=== PATIENT | male | born 1945 | race Caucasian/White ===

== ENCOUNTER → 2020-06-09 09:59 | Outpatient (CLI) | payer BC, SELFPAY ==
--- NOTE | ~2020-06-09 | US_ITS ---
EXAMINATION: US carotid duplex BI DATE: 06/09/2020 10:33 INDICATION: Other specified symptoms and signs involving the circulatory and respiratory systems. TECHNIQUE: Grayscale, color Doppler, and pulsed Doppler images of the cervical carotid arteries were obtained. The degree of vessel stenosis is placed in one of the following categories: normal, <50%, 5 0-69%, >=70% but less than near-occlusion, near-occlusion, or total occlusion. Note that percent sten osis relative to normal distal artery lumen diameter is indirectly measured from velocity measurement s as described by Jose Angel, et al. Radiology 2003; 229:340-346. COMPARISON: None. FINDINGS: RIGHT: The right common carotid artery (CCA) peak systolic velocity (PSV) is 95 cm/s. The right internal car otid artery (ICA) PSV is 68 cm/s. The right ICA end-diastolic velocity (EDV) is 7 cm/s. The right ICA /CCA PSV ratio is 0.7. Grayscale and color Doppler images yield an estimate of <50% diameter reductio n from plaque in the ICA. There is antegrade flow in the right vertebral artery. LEFT: The left CCA PSV is 138 cm/s. The left ICA PSV is 72 cm/s. The left ICA EDV is 6 cm/s. The left ICA/C CA PSV ratio is 0.5. Grayscale and color Doppler images yield an estimate of <50% diameter reduction from plaque in the ICA. There is antegrade flow in the left vertebral artery. IMPRESSION: 1. <50% stenosis in the right internal carotid artery. 2. <50% stenosis in the left internal carotid artery. Reviewed, dictated and finalized at location A. TECH
== END ==
PROVIDERS: PCP Internal Medicine; Visit Provider Internal Medicine
DX: R09.89 Other specified symptoms and signs involving the circulatory and respiratory systems (principal); I65.23 Occlusion and stenosis of bilateral carotid arteries
CPT/HCPCS: 93880

== ENCOUNTER 2022-01-03 10:49 | Outpatient (CLI) | payer BC, SELFPAY ==
--- NOTE | ~2022-01-03 | US_ITS ---
EXAMINATION: US carotid duplex BI DATE: 01/03/2022 11:43 INDICATION: Carotid stenosis. TECHNIQUE: Grayscale, color Doppler, and pulsed Doppler images of the cervical carotid arteries were obtained. The degree of vessel stenosis is placed in one of the following categories: normal, <50%, 5 0-69%, >=70% but less than near-occlusion, near-occlusion, or total occlusion. Note that percent sten osis relative to normal distal artery lumen diameter is indirectly measured from velocity measurement s as described by Jose Angel, et al. Radiology 2003; 229:340-346. Notes: Normal: Peak systolic velocity <125 centimeters/sec and no plaque <50%. Peak systolic velocity <125 ( EDV <40; ICA/CCA PSV ratio <2.0; used these factors only a tandem lesions or low cardiac output or co ntralateral disease) 50-69 %: PSV 125-230 (EDV 40-100; ratio 2-4) >= 70% but less than near occlusion: PSV greater than 230 (EDV > 100; ratio> 4.0) Near Occlusion: PSV that is variable; markedly narrowed lumen Occlusion: Absent flow on color/spectral Doppler and no lumen on walton scale. COMPARISON: Ultrasound dated 06/09/2020. FINDINGS: RIGHT: The right common carotid artery (CCA) peak systolic velocity (PSV) is 97 cm/s. The right internal car otid artery (ICA) PSV is 98 cm/s. The right ICA end-diastolic velocity (EDV) is 5.9 cm/s. The right I CA/CCA PSV ratio is 1.0. The external carotid artery (ECA) PSV is 135 cm/s. The right vertebral arter y is not visualized, possibly occluded. LEFT: The left CCA PSV is 105 cm/s. The left ICA PSV is 102 cm/s. The left ICA EDV is 12 cm/s. The left ICA /CCA PSV ratio is 1.0. The ECA PSV is 141 cm/s. There is antegrade flow in the left vertebral artery . IMPRESSION: 1. Less than 50% stenosis in the right internal carotid artery by sonographic criteria. 2. Less than 50% stenosis in the left internal carotid artery by sonographic criteria. 3: Right vertebral artery is not identified, possibly occluded. Reviewed, dictated and finalized at location A. IMPRESSION: 1. Less than 50% stenosis in the right internal carotid artery by sonographic c riteria. 2. Less than 50% stenosis in the left internal carotid artery by sonographic cr iteria. 3: Right vertebral artery is not identified, possibly occluded.
== END 2022-01-03 10:50 | disposition home or self-care (01) ==
PROVIDERS: PCP Internal Medicine; Visit Provider Internal Medicine
DX: R09.89 Other specified symptoms and signs involving the circulatory and respiratory systems (principal); I65.23 Occlusion and stenosis of bilateral carotid arteries
CPT/HCPCS: 93880

== ENCOUNTER 2024-09-25 14:25 | Outpatient (CLI) | payer BC, SELFPAY ==
--- NOTE | ~2024-09-25 | US_ITS ---
EXAMINATION: US carotid duplex BI DATE: 09/25/2024 15:30 INDICATION: Vascular symptoms TECHNIQUE: Grayscale, color Doppler, and pulsed Doppler images of the cervical carotid arteries were obtained. The degree of vessel stenosis is placed in one of the following categories: normal, <50%, 5 0-69%, >=70% but less than near-occlusion, near-occlusion, or total occlusion. Note that percent sten osis relative to normal distal artery lumen diameter is indirectly measured from velocity measurement s as described by Jose Angel, et al. Radiology 2003; 229:340-346. Notes: Normal: Peak systolic velocity <125 centimeters/sec and no plaque <50%. Peak systolic velocity <125 ( EDV <40; ICA/CCA PSV ratio <2.0; used these factors only a tandem lesions or low cardiac output or co ntralateral disease) 50-69 %: PSV 125-230 (EDV 40-100; ratio 2-4) >= 70% but less than near occlusion: PSV greater than 230 (EDV > 100; ratio> 4.0) Near Occlusion: PSV that is variable; markedly narrowed lumen Occlusion: Absent flow on color/spectral Doppler and no lumen on walton scale. COMPARISON: None. FINDINGS: RIGHT: The right common carotid artery (CCA) peak systolic velocity (PSV) is 96 cm/s. The right internal car otid artery (ICA) PSV is 76 cm/s. The right ICA end-diastolic velocity (EDV) is 10 cm/s. The right IC A/CCA PSV ratio is 0.8. The external carotid artery (ECA) PSV is 102 cm/s. There is to and fro flow i n the right vertebral artery. LEFT: The left CCA PSV is 103 cm/s. The left ICA PSV is 94 cm/s. The left ICA EDV is 12 cm/s. The left ICA/ CCA PSV ratio is 0.9. The ECA PSV is 114 cm/s. There is antegrade flow in the left vertebral artery. IMPRESSION: 1. Less than 50% stenosis in the right internal carotid artery by sonographic criteria. 2. Less than 50% stenosis in the left internal carotid artery by sonographic criteria. 3: To-and-fro flow in the right vertebral artery. Reviewed, dictated and finalized at location A. IMPRESSION: 1. Less than 50% stenosis in the right internal carotid artery by sonographic c riteria. 2. Less than 50% stenosis in the left internal carotid artery by sonographic cr iteria. 3: To-and-fro flow in the right vertebral artery.
--- OUTSIDE RECORDS SUMMARY | 2024-09-25 15:31 | XMS_ITS | Encounter Summary ---
Author Organization [facility] Address [address] [facility] [place] [address] Care Team Providers Care Monotype Setter Name Role Phone Unavailable Primary Care Provider Unavailabl e Encounter Details Date Type Department Care Team (Late st Contact Info) Description 12/04/2019 Lab Requisition [facility] D[facility] Lab [address] [facility] [address] [place] [id number] Cinthia Altman MD [address] [facility] [address] [place] [address] Social History Tobacco Use Types Packs/Day Years Used Date Smoking Tobacco: Former Smokeless Tobacco: Never Alcohol Use Standard Drinks/Week Comments Yes 0 (1 standard drink = 0.6 oz pur e alcohol) Sex and Gender Information Value Date Recorded Sex Assigned at Not on file 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 Gender Identity Not on file Sexual Orientation Not on file documented as of this encounter Plan of Treatment Not on file documented as of this encounter Procedures Procedure Name Priority Date/Time Associated Diagnosis Comments DERMATOPATHOLOGY Routine 12/03/2019 12:0 0 AM CDT documented in this encounter Results * DERMATOPATHOLOGY (12/03/2019 12:00 AM CDT) Case Report Dermatopathology Report Case: [id number] Authorizing Provider: Cinthia Altman MD Collected: 12/03/2019 12:00 AM Ordering Location: [facility] Lab Received: 12/04/2019 06:33 AM Pathologist: Josefa Crouch MD Specimen: Skin, left deltoid 0 1:54 PM CDT DERMATOPATHOLOGY LABORATORY Final Diagnosis Specimen A. SKIN, left deltoid: BASAL CELL CARCINOMA, SUPERFICIAL MULTIFOCAL (C44.619) 0 1:54 PM CDT DERMATOPATHOLOGY LABORATORY Clinical History R/O BCC, irritated 0 1:54 PM CDT DERMATOPATHOLOGY LABORATORY Gross Description Specimen A: Received is one formalin filled container labeled with the patient's name and designated left deltoid. The specimen consists of a shave biopsy measuring 10x7x1 mm. Jar 0. 0 1:54 PM CDT DERMATOPATHOLOGY LABORATORY Microscopic Description Specimen A. SKIN, left deltoid: Attached to the undersurface of the epidermis, there are small aggregates of basaloid cells with a high nuclear to cytoplasmic ratio and peripheral palisading. 0 1:54 PM CDT DERMATOPATHOLOGY LABORATORY Disclaimer An external and internal positive and negative controls are appropriate for the histochemical, immunohistochemical and immunofluorescence stain(s) in this case (if any), except where stated explicitly. The performance characteristics of the stain(s) cited in this report were developed and its performance characteristic determined by the Dermatopathology Laboratory at [facility], directed by Dr. Marta Crouch. These tests need not be, and therefore are not, approved by the [place] Food and Drug Administration. The tests are used for clinical purposes. Billing Codes Specimen Charges Stain Charges 11290 1 0 1:54 PM CDT DERMATOPATHOLOGY LABORATORY Embedded Images 0 1:54 PM CDT DERMATOPATHOLOGY LABORATORY Pathology/Cytolog y TISSUE SPECIMEN FROM SKIN / Unknown 12/03/2019 12/04/2019 6:33 AM CDT Cinthia Altman MD LAB - PATHOLOGY/CYTOLOGY OR DERABLES Final Result DERMATOPATHOLOGY LABORATORY [facility] - Department of Dermatology [employer] [place] [address], [facility] [phone] documented in this encounter Visit Diagnoses Not on filedocumented in this encounter
--- OUTSIDE RECORDS SUMMARY | 2024-09-25 15:31 | XMS_ITS | Encounter Summary ---
Author Organization [facility] Address [address] [facility] [place] [address] Care Team Providers Care Analytical Consultant Name Role Phone Unavailable Primary Care Provider Unavailabl e Encounter Details Date Type Department Care Team (Late st Contact Info) Description 01/18/2018 Lab Requisition 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 Gender Identity Not on file Sexual Orientation Not on file documented as of this encounter Plan of Treatment Not on file documented as of this encounter Procedures Procedure Name Priority Date/Time Associated Diagnosis Comments DERMATOPATH TECHNICAL REPORT Routine 01/17/2018 12:00 AM CDT documented in this encounter Results * DERMATOPATH TECHNICAL REPORT (01/17/2018 12:00 AM CDT) Case Report Dermatopathology Report Case: [id number] Authorizing Provider: Cinthia Altman MD Collected: 01/17/2018 12:00 AM Pathologist: Josefa Crouch MD Received: 01/18/2018 06:57 AM Specimen: Skin, right mid forehead 11:35 AM CDT DERMATOPATHOLOGY LABORATORY Clinical History R/O BCC, irritated. Check margins. 11:35 AM T DERMATOPATHOLOGY LABORATORY Gross Description Specimen A: Received is one formalin filled container labeled with the patient's name and designated right mid forehead. The specimen consists of a shave measuring [id number]. The margin is inked green. Jar 0. [facility] Dermatopathology Laboratory performed the technical component only. 11:35 AM CDT DERMATOPATHOLOGY LABORATORY Embedded Images 11:35 AM T DERMATOPATHOLOGY LABORATORY DISCLAIMER An external and internal positive and negative controls are appropriate for the histochemical, immunohistochemical and immunofluorescence stain(s) in this case (if any), except where stated explicitly. The performance characteristics of the stain(s) cited in this report were developed and its performance characteristic determined by the Dermatopathology Laboratory at [facility]. These tests need not be, and therefore are not, approved by the [place] Food and Drug Administration. The tests are used for clinical purposes. 11:35 AM [facility] DERMATOPATHOLOGY LABORATORY Pathology/Cytolog y TISSUE SPECIMEN FROM SKIN / Unknown 01/17/2018 01/18/2018 6:57 AM CDT Cinthia Altman MD LAB - PATHOLOGY/CYTOLOGY OR DERABLES Final Result DERMATOPATHOLOGY LABORATORY [facility] - Department of Dermatology [address] [place] [address], [address] [place] [address], [facility] [phone] documented in this encounter Visit Diagnoses Not on filedocumented in this encounter
--- OUTSIDE RECORDS SUMMARY | 2024-09-25 15:31 | XMS_ITS | Clinical Summary ---
Author Organization [facility] Address [address] [place] [address] Care Team Providers Care Rn Mental Health Name Role Phone Unavailable Primary Care Provider Unavailabl e Source Comments [facility],non-owned Affiliates and Associated Physician Practices is amultiple site organization consisting of ambulatory clinics and hospital sitesin [place], [place], [place] and [place]. This disclosure is being madepursuant to the Care Everywhere program and may not contain all information available regarding this patient. Last updated [email or web address] Medications * Be aware that medications may not be up to date on this document. Alwaysverify current medications with the patient. omeprazole (PRILOSEC) 20 MG capsule Take 20 mg by mouth DAILY. 12/29/2015 Active aspirin (ASPIRIN) 81 MG tablet Take 81 mg by mouth DAILY. 12/29/2015 Active potassium chloride (KLOR-CON M) 10 MEQ tablet Take 10 mEq by mouth DAILY. 12/29/2015 Active amLODIPine (NORVASC) 2.5 MG tablet Take 2.5 mg by mouth DAILY. 12/29/2015 Active irbesartan (AVAPRO) 150 MG tablet Take 150 mg by mouth. 12/29/2015 Active metoprolol succinate XL 24hr (TOPROL XL) 25 MG tablet Take 25 mg by mouth DAILY. 12/29/2015 Active atorvastatin (LIPITOR) 80 MG tablet Take 80 mg by mouth DAILY. 12/29/2015 Active isosorbide dinitrate (ISORDIL) 30 MG tablet Take 30 mg by mouth DAILY. 12/29/2015 Active furosemide (LASIX) 40 MG tablet Take 20 mg by mouth DAILY. 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 Gender Identity Not on file Sexual Orientation Not on file Last Filed Vital Signs Vital Sign Reading Time Taken Comments Blood Pressure 125/51 03/01/2016 10:40 AM CDT Pulse 63 03/01/2016 10:40 AM CDT Temperature - - Respiratory Rate - - Oxygen Saturation 94% 03/01/2016 10:40 AM CDT Inhaled Oxygen Concentration - - Weight 93 kg (205 lb) 03/01/2016 7:14 AM CDT Height 180.3 cm (5' 11 ) 03/01/2016 7:14 AM CDT Body Mass Index 28.59 03/01/2016 7:14 AM CDT Plan of Treatment Health Maintenance Due Date Last Done Comments HEPATITIS C SCREENING 10/15/1965 DTAP/TDAP/TD VACCINES (1 - Tdap) 10/19/1966 PNEUMOCOCCAL VACCINE 50+ (1 of 1 - PCV) 10/19/1997 ZOSTER VACCINE (1 of 2) 10/19/1997 Respiratory Syncytial Virus (RSV) Vaccine Pt: or over 60 yrs (1 - 1-dose 75+ series) 10/19/2022 COVID-19 VACCINE ( - 2023-2 5 season) 2024 DEPRESSION SCREENING 05/29/2024 INFLUENZA VACCINE (Season Ended) 2025 HEPATITIS B VACCINE Aged Out No longe r eligible based on patient's age to complete this topic HIB VACCINE Aged Out No longer eligi ble based on patient's age to complete this topic HPV VACCINE Aged Out No longer eligi ble based on patient's age to complete this topic MENINGOCOCCAL (Group B) VACC INE SHARED DECISION-MAKING Aged Out No longer eligibl e based on patient's age to complete this topic MENINGOCOCCAL GROUPS A/C/Y/W VACCINE Aged Out No longer eligible b ased on patient's age to complete this topic Insurance [facility] Member Subscriber Plan / Payer (Ef fective 1984-Present) Name:Edgardo Wiseman Relation to Subscriber:Spouse Name:NIURKA WISEMAN Subscriber ID:Not on file Date of :1946 Payer ID:[id number] (NAIC) Group ID:[id number] Type:O Address: [facility] [address] [place] [id number]
--- OUTSIDE RECORDS SUMMARY | 2024-09-25 15:31 | XMS_ITS | Clinical Summary ---
Author Organization [facility] Address [address] [place] [address] Care Team Providers Care Button Sewer Hand Name Role Phone Иван Martel MD Unavailable Jonel Peck MD Primary Care Provider [phone] Allergies No known active allergies Medications nitroglycerin (NITROLINGUAL) 400 mcg/spray spray Place under the tongue as needed Active aspirin 81 mg enteric coated tablet 1 tablet (81 mg total) daily Active omeprazole OTC (PriLOSEC OTC) 20 mg EC tablet 1 tablet (20 mg total) daily Active cyanocobalamin (Vitamin B-12) 1,000 mcg tabletIndicatio ns:Prevention of Vitamin B12 Deficiency Take 1 tablet (1,000 mcg total) by mouth daily Active folic acid (FOLVITE) 1 mg tablet Take 1 tablet (1 mg total) by mouth daily Active hydrOXYzine (ATARAX) 25 mg tablet Take 1 tablet (25 mg total) by mouth 3 (three) times a day as needed for itching Active ezetimibe (ZETIA) 10 mg tablet TAKE 1 TABLET BY MOUTH EVERY DAY 90 tablet 2 4 Active lisinopriL (PRINIVIL,ZESTR IL) 10 mg tablet Take 1 tablet (10 mg total) by mouth daily 90 tablet 3 4 025 Active metoprolol XL (TOPROL-XL) 25 mg extended release tablet TAKE 1 TABLET BY MOUTH EVERY DAY 90 tablet 1 4 Active atorvastatin (LIPITOR) 80 mg tablet TAKE 1 TABLET BY MOUTH EVERY DAY 90 tablet 3 5 Active isosorbide mononitrate ER (IMDUR) 30 mg 24 hr tablet TAKE 1 TABLET BY MOUTH EVERY DAY 90 tablet 1 5 Active amLODIPine (NORVASC) 2.5 mg tablet TAKE 1 TABLET BY MOUTH EVERY DAY 90 tablet 1 5 Active furosemide (LASIX) 40 mg tablet TAKE 1 TABLET BY MOUTH EVERY DAY 90 tablet 2 5 Active potassium chloride ER 10 mEq CR tablet TAKE 1 TABLET BY MOUTH WITH FOOD DAILY 90 tablet 2 5 Active furosemide (LASIX) 40 mg tablet TAKE 1 TABLET BY MOUTH EVERY DAY 90 tablet 2 4 025 Discontinued potassium chloride ER 10 mEq CR tablet TAKE 1 TABLET BY MOUTH WITH FOOD DAILY 90 tablet 2 4 025 Discontinued isosorbide mononitrate ER (IMDUR) 30 mg 24 hr tablet TAKE 1 TABLET BY MOUTH EVERY DAY 90 tablet 1 4 025 Discontinued amLODIPine (NORVASC) 2.5 mg tablet TAKE 1 TABLET BY MOUTH EVERY DAY 90 tablet 1 4 025 Discontinued Active Problems Problem Noted Date Diagnosed Date Mixed hyperlipidemia 06/15/2021 Essential hypertension, benign 06/15/2021 Nonrheumatic aortic (valve) insufficiency 2019 Heart murmur 10/28/2016 Abnormal stress test 03/22/2016 Overview (11/19/2018): Patient had abnormal stress test in November 2013. At that time which showed about 5% reversible ischemia involving the left one. Doing well on medical therapy Diastolic dysfunction 03/22/2016 CAD (coronary artery disease) 11/03/2015 Cardiomyopathy 11/03/2015 Overview (11/19/2018): Echo done in October 8 interrupted ejection fraction around 55-60%. Presence of aortocoronary bypass graft 6 Overview (11/19/2018): Patient had a bypass surgery in May of 2013 Resolved Problems Problem Noted Date Diagnosed Date Resolved Date Essential hypertension 11/21/201806/15 Dyslipidemia 11/03/2015 06/15/2021 Surgical History Surgery Date Site/Laterality Comments CORONARY ARTERY BYPASS GRAFT 05/29/2013 - 06/28/2013 COLONOSCOPY CATARACT EXTRACTION, BILATERAL Medical History Medical History Date Comments CAD (coronary artery disease) Coronary artery disease with history of myocardial infarction without history of CABG HLD (hyperlipidemia) Cardiomyopathy (HCC) Hypertension Family History Relation Name Status Comments Father Mother Alive Social History Tobacco Use Types Packs/Day Years Used Date Smoking Tobacco: Former Cigarettes Q uit: 11/21/2004 Smokeless Tobacco: Never Tobacco Cessation:Counseling Given: Not Answered Alcohol Use Standard Drinks/Week Comments Not Currently 0 (1 standard drink = 0.6 oz pur e alcohol) Sex and Gender Information Value Date Recorded Sex Assigned at Not on file Legal Sex Male 6:34 PM MANUFACTURERS SERVICE REPRESENTATIVE Gender Identity Male 06/08/2021 9:07 AM MANUFACTURERS SERVICE REPRESENTATIVE Sexual Orientation Straight 06/08/2021 9: 08 AM MANUFACTURERS SERVICE REPRESENTATIVE Obstetrics History Last Filed Vital Signs Vital Sign Reading Time Taken Comments Blood Pressure 124/40 05/02/2024 1:47 PM MANUFACTURERS SERVICE REPRESENTATIVE Pulse 64 05/02/2024 1:47 PM MANUFACTURERS SERVICE REPRESENTATIVE Temperature 36.6 C (97.8 F) 06/15/2021 9:51 AM MANUFACTURERS SERVICE REPRESENTATIVE Respiratory Rate - - Oxygen Saturation 98% 01/31/2024 11: 20 AM CDT Inhaled Oxygen Concentration - - Weight 101.5 kg (223 lb 11.2 oz) 05/02/2024 1:47 PM MANUFACTURERS SERVICE REPRESENTATIVE Height 177.8 cm (5' 10 ) 05/02/2024 1:47 PM MANUFACTURERS SERVICE REPRESENTATIVE Body Mass Index 32.1 05/02/2024 1:47 PM MANUFACTURERS SERVICE REPRESENTATIVE Plan of Treatment Health Maintenance Due Date Last Done Comments Depression Screening 1945 Fall Risk Assessment 1945 Hepatitis C Screening 1945 Hepatitis B Screening 10/19/1965 Pneumococcal vaccine 65+ (1 of 1 - PCV) 10/19/1997 Zoster Vaccine (1 of 2) 10/19/1997 Abdominal Aortic Aneurysm (A AA) Screen 10/19/2012 Well Visit 65+ 10/19/2012 DTaP/Tdap/Td Vaccine (2 - Td or Tdap) 02/20/2026 02/21/2016 Influenza Vaccine Completed 03/22/2024, , 03/21/2018, Additional history exists Insurance MEDICARE [facility] [employer] [employer] Member Subscriber Plan / Payer (Ef fective 1984-Present) Name:Edgardo Wiseman Relation to Subscriber:Spouse Name:Niurka Wiseman Date of :1946 (Home) Address[address] [place] [address] Payer ID:[id number] (NAIC) Group ID:[id number] Type:VYou Address: [facility] [id number] [place] [id number] Care Teams Button Sewer Hand Relationship Specialty Start Date End Date Jonel Peck MD [address] [place] [address] PCP - General Internal Medicine 06/12/20 Иван Martel MD [address] [place] [address] [address] Computer Systems Administrator Cardiology 05/17/19
--- OUTSIDE RECORDS SUMMARY | 2024-09-25 15:31 | XMS_ITS | Encounter Summary ---
Author Organization [facility] Address [address] [facility] [place] [address] Care Team Providers Care Tubing Oiler Name Role Phone Unavailable Primary Care Provider Unavailabl e Encounter Details Date Type Department Care Team (Late st Contact Info) Description 01/02/2020 Lab Requisition [facility] DermPath Lab [address] [facility] [place] [id number] Cinthia Altman MD [address] [facility] [address] [place] [address] Social History Tobacco Use Types Packs/Day Years Used Date Smoking Tobacco: Former Smokeless Tobacco: Never Alcohol Use Standard Drinks/Week Comments Yes 0 (1 standard drink = 0.6 oz pur e alcohol) Sex and Gender Information Value Date Recorded Sex Assigned at Not on file 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 Gender Identity Not on file Sexual Orientation Not on file documented as of this encounter Plan of Treatment Not on file documented as of this encounter Procedures Procedure Name Priority Date/Time Associated Diagnosis Comments DERMATOPATHOLOGY Routine 01/01/2020 12:0 0 AM CDT documented in this encounter Results * DERMATOPATHOLOGY (01/01/2020 12:00 AM CDT) Case Report Dermatopathology Report Case: [id number] Authorizing Provider: Cinthia Altman MD Collected: 01/01/2020 12:00 AM Ordering Location: [facility] DermPath Lab Received: 01/02/2020 09:26 AM Pathologist: Jeimy Alfaro MD Specimen: Skin, left ant shoulder 0 1:41 PM CDT DERMATOPATHOLOGY LABORATORY Final Diagnosis Specimen A. SKIN, left ant shoulder: BASAL CELL CARCINOMA, SUPERFICIAL MULTIFOCAL (C44.619) 0 1:41 PM CDT DERMATOPATHOLOGY LABORATORY Clinical History R/O BCC, non-healing. 0 1:41 PM CDT DERMATOPATHOLOGY LABORATORY Gross Description Specimen A: Received is one formalin filled container labeled with the patient's name and designated left ant shoulder. The specimen consists of a shave measuring [id number]. Jar 0. 0 1:41 PM CDT DERMATOPATHOLOGY LABORATORY Microscopic Description Specimen A. SKIN, left ant shoulder: Attached to the undersurface of the epidermis, there are small aggregates of basaloid cells with a high nuclear to cytoplasmic ratio and peripheral palisading. 0 1:41 PM CDT DERMATOPATHOLOGY LABORATORY Disclaimer An external and internal positive and negative controls are appropriate for the histochemical, immunohistochemical and immunofluorescence stain(s) in this case (if any), except where stated explicitly. The performance characteristics of the stain(s) cited in this report were developed and its performance characteristic determined by the Dermatopathology Laboratory at [facility], directed by Dr. Marta Crouch. These tests need not be, and therefore are not, approved by the [place] Food and Drug Administration. The tests are used for clinical purposes. Billing Codes Specimen Charges Stain Charges 27866 1 0 1:41 PM CDT DERMATOPATHOLOGY LABORATORY Embedded Images 0 1:41 PM CDT DERMATOPATHOLOGY LABORATORY Pathology/Cytolog y TISSUE SPECIMEN FROM SKIN / Unknown 01/01/2020 01/02/2020 9:26 AM CDT Cinthia Altman MD LAB - PATHOLOGY/CYTOLOGY OR DERABLES Final Result DERMATOPATHOLOGY LABORATORY [facility] - Department of Dermatology Asw [place] [address], [facility] [phone] documented in this encounter Visit Diagnoses Not on filedocumented in this encounter
--- OUTSIDE RECORDS SUMMARY | 2024-09-25 15:31 | XMS_ITS | Clinical Summary ---
Author Organization [facility] Address [address] [place] [address] Care Team Providers Care Call Center Receptionist Name Role Phone Madi Card MD Primary Care Provider Unavaila ble Social History Tobacco Use Types Packs/Day Years Used Date Smoking Tobacco: Never Assessed Sex and Gender Information Value Date Recorded Sex Assigned at Not on file Legal Sex Male 8:25 PM CDT Gender Identity Not on file Sexual Orientation Not on file Plan of Treatment Health Maintenance Due Date Last Done Comments Hepatitis C 10/19/1965 DTaP, Tdap and Td Vaccines ( 1 - Tdap) 10/19/1966 Pneumococcal Vaccine: 50+ Ye ars (1 of 1 - PCV) 10/19/1997 Zoster Vaccines (1 of 2) 10/19/1997 RSV Immunization or 60+ Years (1 - 1-dose 75+ series) 10/19/2022 COVID-19 Vaccine ( - 2023-2 5 season) 2024 Meningococcal B Vaccine Aged Out No l onger eligible based on patient's age to complete this topic Meningococcal Vaccine Aged Out No archana dacia eligible based on patient's age to complete this topic RSV Immunizations Under 20 Months Aged Out No longer eligible based on patient's age to complete this topic Care Teams Call Center Receptionist Relationship Specialty Start Date End Date Madi Card MD PCP - General 10/03/14
--- OUTSIDE RECORDS SUMMARY | 2024-09-25 15:31 | XMS_ITS | Referral Summary ---
Author Organization [facility] Address [address] [place] [address] Care Team Providers Care Prosthetist Name Role Phone Иван Martel MD Unavailable [phone] Jonel Peck MD Primary Care Provider [phone] Allergies No known active allergies Medications nitroglycerin [...] Date Essential hypertension 11/21/201806/15 Dyslipidemia 11/03/2015 06/15/2021 Social History Tobacco Use Types Packs/Day Years Used Date Smoking Tobacco: Former Cigarettes Q uit: 11/21/2004 Smokeless Tobacco: Never Tobacco Cessation:Counseling Given: Not Answered Alcohol Use Standard Drinks/Week Comments Not Currently 0 (1 standard drink = 0.6 oz pur e alcohol) Sex and Gender Information Value Date Recorded Sex Assigned at Not on file Legal Sex Male 6:34 PM LEI SELLER Gender Identity Male 06/08/2021 9:07 AM LEI SELLER Sexual Orientation Straight 06/08/2021 9: 08 AM LEI SELLER Last Filed Vital Signs Vital Sign Reading Time Taken Comments Blood Pressure 124/40 05/02/2024 1:47 PM LEI SELLER Pulse 64 05/02/2024 1:47 PM LEI SELLER Temperature 36.6 C (97.8 F) 06/15/2021 9:51 AM LEI SELLER Respiratory Rate - - Oxygen Saturation 98% 01/31/2024 11: 20 AM CDT Inhaled Oxygen Concentration - - Weight 101.5 kg (223 lb 11.2 oz) 05/02/2024 1:47 PM LEI SELLER Height 177.8 cm (5' 10 ) 05/02/2024 1:47 PM LEI SELLER Body Mass Index 32.1 05/02/2024 1:47 PM LEI SELLER Plan of Treatment Not on file Insurance MEDICARE [facility] [employer] Care Teams Prosthetist Relationship Specialty Start Date End Date Jonel Peck MD [address] [facility] [address] [facility] [address] [place] [address] PCP - General Internal Medicine 06/12/20 Иван Martel MD [address] [address] Chief Inspector Cardiology 05/17/19
--- OUTSIDE RECORDS SUMMARY | 2024-09-25 15:31 | XMS_ITS | Encounter Summary ---
Author Organization [facility] Address [address] [place] [address] Care Team Providers Care Sorting Machine Operator Name Role Phone Unavailable Primary Care Provider Unavailabl e Encounter Details Date Type Department Care Team (Late st Contact Info) Description 06/17/2020 Lab Requisition [facility] DermPath Lab [address] [facility], [place] [phone] Cinthia Altman MD [address] [facility] 3 [place] [address] Social History Tobacco Use Types Packs/Day Years Used Date Smoking Tobacco: Former Smokeless Tobacco: Never Alcohol Use Standard Drinks/Week Comments Yes 0 (1 standard drink = 0.6 oz pur e alcohol) Sex and Gender Information Value Date Recorded Sex Assigned at Not on file Legal Sex Male 5:47 PM SYSTEMS MANAGER Gender Identity Not on file Sexual Orientation Not on file documented as of this encounter Plan of Treatment Not on file documented as of this encounter Procedures Procedure Name Priority Date/Time Associated Diagnosis Comments DERMATOPATHOLOGY Routine 06/16/2020 12:0 0 AM SYSTEMS MANAGER documented in this encounter Results * DERMATOPATHOLOGY (06/16/2020 12:00 AM SYSTEMS MANAGER) Case Report Dermatopathology Report Case: [id number] Authorizing Provider: Cinthia Altman MD Collected: 06/16/2020 12:00 AM Ordering Location: [facility] DermPath Lab Received: 06/17/2020 08:42 AM Pathologist: Josefa Crouch MD Specimens: A) - Skin, right deltoid B) - Skin, post scalp 4:27 PM [facility] DERMATOPATHOLOGY LABORATORY Final Diagnosis Specimen A. SKIN, right deltoid: URTICARIA, CONSISTENT WITH (L50.9) EPIDERMAL NECROSIS SUGGESTIVE OF EXCORIATION (L98.499) (see microscopic description and comment) Specimen B. SKIN, post scalp: URTICARIA, CONSISTENT WITH (L50.9) EPIDERMAL NECROSIS SUGGESTIVE OF EXCORIATION (L98.499) (see microscopic description and comment) 4:27 PM SYSTEMS MANAGER DERMATOPATHOLOGY LABORATORY Clinical History A-B: R/O scabies vs urticaria, pruritus. 4:27 PM [facility] DERMATOPATHOLOGY LABORATORY Gross Description Specimen A: Received is one formalin filled container labeled with the patient's name and designated right deltoid. The specimen consists of a punch measuring [id number], bisected. Jar 0. Specimen B: Received is one formalin filled container labeled with the patient's name and designated post scalp. The specimen consists of a punch measuring [id number], bisected. Jar 0. 4:27 PM [facility] DERMATOPATHOLOGY LABORATORY Microscopic Description Specimen A. SKIN, right deltoid: Sections from both biopsies show similar findings. A sparse perivascular and interstitial mixed infiltrate composed of lymphocytes, eosinophils, and neutrophils is present within the dermis. There is associated dermal edema. The epidermis is focally necrotic and covered with a scale-crust. There is fibrin at the base. Additional deeper sections were obtained and reviewed and no scabies mites are identified. Grocott's methenamine silver (GMS) stain on both specimens fails to highlight fungal elements in the available sections. Specimen B. SKIN, post scalp: See microscopic description and comment for A. 4:27 PM [facility] DERMATOPATHOLOGY LABORATORY Disclaimer An external and internal positive and negative controls are appropriate for the histochemical, immunohistochemical and immunofluorescence stain(s) in this case (if any), except where stated explicitly. The performance characteristics of the stain(s) cited in this report were developed and its performance characteristic determined by the Dermatopathology Laboratory at [facility], directed by Dr. Marta Crouch. These tests need not be, and therefore are not, approved by the [place] Food and Drug Administration. The tests are used for clinical purposes. Billing Codes Specimen Charges Stain Charges 35189 96730 1 1 60293 12999 1 1 1 4:27 PM SYSTEMS MANAGER DERMATOPATHOLOGY LABORATORY Embedded Images 4:27 PM SYSTEMS MANAGER DERMATOPATHOLOGY LABORATORY Pathology/Cytology TISSUE SPECIMEN FROM SKIN / Unknown 06/16/2020 06/17/2020 8:42 AM SYSTEMS MANAGER Miscellaneous samples (specimen) TISSUE SPECIMEN FROM SKIN / Unknown 06/16/2020 06/17/2020 8:42 AM SYSTEMS MANAGER Cinthia Altman MD LAB - PATHOLOGY/CYTOLOGY OR DERABLES Final Result DERMATOPATHOLOGY LABORATORY [facility] - Department of Dermatology [facility] Medicine [address] [place] [address], [address] [phone] documented in this encounter Visit Diagnoses Not on filedocumented in this encounter
== END 2024-09-25 14:26 | disposition home or self-care (01) ==
PROVIDERS: PCP Internal Medicine; Visit Provider Internal Medicine
DX: R09.89 Other specified symptoms and signs involving the circulatory and respiratory systems (principal); I25.10 Atherosclerotic heart disease of native coronary artery without angina pectoris; I65.23 Occlusion and stenosis of bilateral carotid arteries
CPT/HCPCS: 93880

== ENCOUNTER 2025-02-05 01:55 | Day surgery (SDC) | payer BC, SELFPAY ==
[2025-01-22 13:10] VITALS: BMI 30.1
--- OUTSIDE RECORDS SUMMARY | 2025-02-05 01:58 | XMS_ITS | Clinical Summary ---
Author Organization [facility] Address [address] [place] [address] Care Team Providers Care Director Of Math Name Role Phone Иван Martel MD Unavailable [phone] Jonel Peck MD Primary Care Provider [phone] Allergies No known active allergies Medications nitroglycerin [...] a day as needed for itching Active atorvastatin (LIPITOR) 80 mg tablet TAKE [...] FOOD DAILY 90 tablet 2 5 Active ezetimibe (ZETIA) 10 mg tablet TAKE 1 TABLET BY MOUTH EVERY DAY 90 tablet 2 5 Active metoprolol XL (TOPROL-XL) 25 mg extended release tablet TAKE 1 TABLET BY MOUTH EVERY DAY 90 tablet 1 5 Active lisinopriL (PRINIVIL,ZESTR IL) 10 mg tablet TAKE 1 TABLET BY MOUTH EVERY DAY 90 tablet 3 5 Active lisinopriL (PRINIVIL,ZESTR IL) 10 mg tablet Take 1 tablet (10 mg total) by mouth daily 90 tablet 3 4 025 Discontinued Active Problems Problem Noted [...] Date Essential hypertension 11/21/201806/15 Dyslipidemia 11/03/2015 06/15/2021 Encounters Date Type Department Care Team Description 01/23/2025 Telephone [facility] Medical Group Cardiology [facility] [address] [address] Иван Martel MD from Last 3 Months Surgical History Surgery Date Site/Laterality Comments CORONARY ARTERY BYPASS GRAFT 05/29/2013 - 06/28/2013 COLONOSCOPY CATARACT EXTRACTION, BILATERAL Medical History Medical History Date Comments CAD (coronary artery disease) Coronary artery disease with history of myocardial infarction without history of CABG HLD (hyperlipidemia) Cardiomyopathy Hypertension Family History Relation Name Status Comments [...] on file Legal Sex Male 6:34 PM CHIROPRACTIC DOCTOR Gender Identity Male 06/08/2021 9:07 AM CHIROPRACTIC DOCTOR Sexual Orientation Straight 06/08/2021 9: 08 AM CHIROPRACTIC DOCTOR Obstetrics History Last Filed Vital Signs Vital Sign Reading Time Taken Comments Blood Pressure 140/60 11/04/2024 2:14 PM CDT Pulse 72 11/04/2024 2:14 PM CDT Temperature 36.6 C (97.8 F) 06/15/2021 9:51 AM CHIROPRACTIC DOCTOR Respiratory Rate - - Oxygen Saturation 97% 11/04/2024 2:14 PM CDT Inhaled Oxygen Concentration - - Weight 105.9 kg (233 lb 6.4 oz) 11/04/2024 2:14 PM CDT Height 177.8 cm (5' 10) 11/04/2024 2:14 PM CDT Body Mass Index 33.49 11/04/2024 2:14 PM CDT Plan of Treatment Health Maintenance Due Date Last Done Comments Depression Screening 1945 Fall Risk Assessment 1945 Hepatitis C Screening 1945 Hepatitis B Screening 10/19/1965 Pneumococcal vaccine 65+ (1 of 1 - PCV) 10/19/1997 Zoster Vaccine (1 of 2) 10/19/1997 Abdominal Aortic Aneurysm (A AA) Screen 10/19/2012 Well Visit 65+ 10/19/2012 Influenza Vaccine (#1) 2025 , 04/13/2019, 03/21/2018, Additional history exists DTaP/Tdap/Td Vaccine (2 - Td or Tdap) 02/20/2026 02/21/2016 Insurance MEDICARE [facility] [employer]AL [facility] [employer] Care Teams Director Of Math Relationship Specialty Start Date End Date Jonel Peck MD [address] [place] [address] PCP - General Internal Medicine 06/12/20 Иван Martel MD [address] [facility] [place] [address] Supervisor Shop Cardiology 05/17/19
--- OUTSIDE RECORDS SUMMARY | 2025-02-05 01:58 | XMS_ITS | Encounter Summary ---
Author Organization [facility] Address [address] [facility] [address] Care Team Providers Care Medical Lab Technician Name Role Phone Unavailable Primary Care Provider Unavailabl e Encounter Details Date Type Department Care Team (Late st Contact Info) Description 01/18/2018 Lab Requisition [facility] Care DermPath Lab [address] [facility], [place] [address] Cinthia Altman MD [address] [facility] 3 [place] [address] Social History Tobacco Use Types Packs/Day Years Used Date Smoking Tobacco: Former Smokeless Tobacco: Never Alcohol Use Standard Drinks/Week Comments Yes 0 (1 standard drink = 0.6 oz pur e alcohol) Sex and Gender Information Value Date Recorded Sex Assigned at Not on file Legal Sex Male 5:47 PM COSMETIC CONSULTANT Gender Identity Not on file Sexual Orientation Not on file documented as of this encounter Plan of Treatment Not on file documented as of this encounter Procedures Procedure Name Priority Date/Time Associated Diagnosis Comments DERMATOPATH TECHNICAL REPORT Routine 01/17/2018 12:00 AM CDT documented in this encounter Results * DERMATOPATH TECHNICAL REPORT (01/17/2018 12:00 AM CDT) Case Report Dermatopathology Report Case: [id number] Authorizing Provider: Cinthia Altman MD Collected: 01/17/2018 [...] The specimen consists of a shave measuring [id number]. The margin is inked green. Jar 0. [facility] Dermatopathology Laboratory performed the technical component only. [...] characteristic determined by the Dermatopathology Laboratory at [facility]. These tests need not be, and therefore are not, approved by the [place] Food and Drug Administration. The tests are used for clinical purposes. 11:35 AM [facility] DERMATOPATHOLOGY LABORATORY at 1135 CDT Pathology/Cytolog y TISSUE SPECIMEN FROM SKIN / Unknown 01/17/2018 01/18/2018 6:57 AM CDT Cinthia Altman MD LAB - PATHOLOGY/CYTOLOGY OR DERABLES Final Result DERMATOPATHOLOGY LABORATORY [facility] - Department of Dermatology [facility] [facility], 5th [place] [address], [facility] [phone] documented in this encounter Visit Diagnoses Not on filedocumented in this encounter
--- OUTSIDE RECORDS SUMMARY | 2025-02-05 01:58 | XMS_ITS | Encounter Summary ---
Author Organization [facility] Address [address] [facility] [place] [address] Care Team Providers Care Forensic Psychologist Name Role Phone Unavailable Primary Care Provider Unavailabl e Encounter Details Date Type Department Care Team (Late st Contact Info) Description 01/02/[address] [facility] DermPath Lab [address] [facility], [place] [phone] Cinthia Altman MD [address] [facility] 3 [place] [address] Social History Tobacco Use Types Packs/Day Years Used Date Smoking Tobacco: Former Smokeless Tobacco: Never Alcohol Use Standard Drinks/Week Comments Yes 0 (1 standard drink = 0.6 oz pur e alcohol) Sex and Gender Information Value Date Recorded Sex Assigned at Not on file Legal Sex Male 5:47 PM CORDUROY CUTTER OPERATOR Gender Identity Not on file Sexual Orientation Not on file documented as of this encounter Plan of Treatment Not on file documented as of this encounter Procedures Procedure Name Priority Date/Time Associated Diagnosis Comments DERMATOPATHOLOGY Routine 01/01/2020 12:0 0 AM CDT documented in this encounter Results * DERMATOPATHOLOGY (01/01/2020 12:00 AM CDT) Case Report Dermatopathology Report Case: [id number] Authorizing Provider: Cinthia Altman MD Collected: 01/01/2020 12:00 AM Ordering Location: [facility] DermPath Lab Received: 01/02/2020 09:26 AM Pathologist: Jeimy Alfaro MD Specimen: Skin, left ant shoulder 0 1:41 PM CDT DERMATOPATHOLOGY LABORATORY Final Diagnosis Specimen A. SKIN, left ant shoulder: BASAL CELL CARCINOMA, SUPERFICIAL MULTIFOCAL (C44.619) 0 1:41 PM CDT DERMATOPATHOLOGY LABORATORY at 1341 CDT Clinical History R/O BCC, non-healing. 0 1:41 PM CDT DERMATOPATHOLOGY LABORATORY Gross Description Specimen A: Received is one formalin filled container labeled with the patient's name and designated left ant shoulder. The specimen consists of a shave measuring [id number]. Jar 0. 0 1:41 PM CDT DERMATOPATHOLOGY [...] by the Dermatopathology Laboratory at [facility], directed by Dr. Marta Crouch. These tests need not be, and therefore are not, approved by the [place] Food and Drug Administration. The tests are used for clinical purposes. Billing Codes Specimen Charges Stain Charges 75993 1 0 1:41 PM CDT DERMATOPATHOLOGY LABORATORY Embedded Images 0 1:41 PM CDT DERMATOPATHOLOGY LABORATORY Pathology/Cytolog y TISSUE SPECIMEN FROM SKIN / Unknown 01/01/2020 01/02/2020 9:26 AM CDT Cinthia Altman MD LAB - PATHOLOGY/CYTOLOGY OR DERABLES Final Result DERMATOPATHOLOGY LABORATORY [facility] - Department of Dermatology [employer] [place] [address], [facility] [phone] documented in this encounter Visit Diagnoses Not on filedocumented in this encounter
--- OUTSIDE RECORDS SUMMARY | 2025-02-05 01:58 | XMS_ITS | Encounter Summary ---
Author Organization [facility] Address [address] [facility] [place] [address] Care Team Providers Care Software Licensing Analyst Name Role Phone Unavailable Primary Care Provider Unavailabl e Encounter Details Date Type Department Care Team (Late st Contact Info) Description 12/04/2019 Lab Requisition [facility] DermPath Lab [address] [facility], [place] [phone] Cinthia Altman MD [address] [facility] 3 [place] [address] Social History Tobacco Use Types Packs/Day Years Used Date Smoking Tobacco: Former Smokeless Tobacco: Never Alcohol Use Standard Drinks/Week Comments Yes 0 (1 standard drink = 0.6 oz pur e alcohol) Sex and Gender Information Value Date Recorded Sex Assigned at Not on file Legal Sex Male 5:47 PM GATE TECHNICIAN Gender Identity Not on file Sexual Orientation Not on file documented as of this encounter Plan of Treatment Not on file documented as of this encounter Procedures Procedure Name Priority Date/Time Associated Diagnosis Comments DERMATOPATHOLOGY Routine 12/03/2019 12:0 0 AM CDT documented in this encounter Results * DERMATOPATHOLOGY (12/03/2019 12:00 AM CDT) Case Report Dermatopathology Report Case: [id number] Authorizing Provider: Cinthia Altman MD Collected: 12/03/2019 12:00 AM Ordering Location: [facility] DermPath Lab Received: 12/04/2019 06:33 AM Pathologist: Josefa Crouch MD Specimen: Skin, left deltoid 0 1:54 PM CDT DERMATOPATHOLOGY LABORATORY Final Diagnosis Specimen A. SKIN, left deltoid: BASAL CELL CARCINOMA, SUPERFICIAL MULTIFOCAL (C44.619) 0 1:54 PM CDT DERMATOPATHOLOGY LABORATORY at 1354 CDT Clinical History R/O BCC, irritated 0 1:54 [...] characteristic determined by the Dermatopathology Laboratory at [facility], directed by Dr. Marta Crouch. These tests need not be, and therefore are not, approved by the [place] Food and Drug Administration. The tests are used for clinical purposes. Billing Codes Specimen Charges Stain Charges 36575 1 0 1:54 PM CDT DERMATOPATHOLOGY LABORATORY Embedded Images 0 1:54 PM CDT DERMATOPATHOLOGY LABORATORY Pathology/Cytolog y TISSUE SPECIMEN FROM SKIN / Unknown 12/03/2019 12/04/2019 6:33 AM CDT Cinthia Altman MD LAB - PATHOLOGY/CYTOLOGY OR DERABLES Final Result DERMATOPATHOLOGY LABORATORY [facility] - Department of Dermatology [employer] [place] [address], [place] [phone] documented in this encounter Visit Diagnoses Not on filedocumented in this encounter
--- OUTSIDE RECORDS SUMMARY | 2025-02-05 01:58 | XMS_ITS | Encounter Summary ---
Author Organization [facility] Address [address] [place] [address] Care Team Providers Care Plant Operations Engineer Name Role Phone Unavailable Primary Care Provider Unavailabl e Encounter Details Date Type Department Care Team (Late st Contact Info) Description 06/17/2020 Lab Requisition [facility] [address] [place] [id number] Cinthia Altman MD [address] [facility] [address] [place] [address] Social History Tobacco Use Types Packs/Day Years Used Date Smoking Tobacco: Former Smokeless Tobacco: Never Alcohol Use Standard Drinks/Week Comments Yes 0 (1 standard drink = 0.6 oz pur e alcohol) Sex and Gender Information Value Date Recorded Sex Assigned at Not on file Legal Sex Male 5:47 PM SAND CONDITIONER Gender Identity Not on file Sexual Orientation Not on file documented as of this encounter Plan of Treatment Not on file documented as of this encounter Procedures Procedure Name Priority Date/Time Associated Diagnosis Comments DERMATOPATHOLOGY Routine 06/16/2020 12:0 0 AM SAND CONDITIONER documented in this encounter Results * DERMATOPATHOLOGY (06/16/2020 12:00 AM SAND CONDITIONER) Case Report Dermatopathology Report Case: [id number] Authorizing Provider: Cinthia Altman MD Collected: 06/16/2020 12:00 AM Ordering Location: [facility] Received: 06/17/2020 08:42 AM Pathologist: Josfea Crouch MD Specimens: A) - Skin, right deltoid B) - Skin, post scalp 4:[address] [facility] DERMATOPATHOLOGY LABORATORY Final Diagnosis Specimen A. SKIN, right deltoid: URTICARIA, CONSISTENT WITH (L50.9) EPIDERMAL NECROSIS SUGGESTIVE OF EXCORIATION (L98.499) (see microscopic description and comment) Specimen B. SKIN, post scalp: URTICARIA, CONSISTENT WITH (L50.9) EPIDERMAL NECROSIS SUGGESTIVE OF EXCORIATION (L98.499) (see microscopic description and comment) 4:[address] [facility] DERMATOPATHOLOGY LABORATORY at [address] [facility] Clinical History A-B: R/O scabies vs urticaria, pruritus. 4:[address] [facility] DERMATOPATHOLOGY LABORATORY Gross Description Specimen A: Received is one formalin filled container labeled with the patient's name and designated right deltoid. The specimen consists of a punch measuring [id number], bisected. Jar 0. Specimen B: Received is one formalin filled container labeled with the patient's name and designated post scalp. The specimen consists of a punch measuring [id number], bisected. Jar 0. 4:[address] [facility] DERMATOPATHOLOGY LABORATORY Microscopic Description Specimen A. SKIN, [...] description and comment for A. 4:[address] [facility] DERMATOPATHOLOGY LABORATORY Disclaimer An external and internal positive and negative controls are appropriate for the histochemical, immunohistochemical and immunofluorescence stain(s) in this case (if any), except where stated explicitly. The performance characteristics of the stain(s) cited in this report were developed and its performance characteristic determined by the Dermatopathology Laboratory at [facility], directed by Dr. Marta Crouch. These tests need not be, and therefore are not, approved by the [place] Food and Drug Administration. The tests are used for clinical purposes. Billing Codes Specimen Charges Stain Charges 00272 12576 1 1 [id number] [id number] 1 1 1 4:27 PM S[employer] CONDITIONER DERMATOPATHOLOGY LABORATORY Embedded Images 4:27 PM [facility] DERMATOPATHOLOGY LABORATORY Pathology/Cytology TISSUE SPECIMEN FROM SKIN / Unknown 06/16/2020 06/17/2020 8:42 AM SAND CONDITIONER Miscellaneous samples (specimen) TISSUE SPECIMEN FROM SKIN / Unknown 06/16/2020 06/17/2020 8:42 AM SAND CONDITIONER Cinthia Altman MD LAB - PATHOLOGY/CYTOLOGY OR DERABLES Final Result DERMATOPATHOLOGY LABORATORY [facility] - Department of Dermatology [facility] [address] [place] [address], [address] [phone] documented in this encounter Visit Diagnoses Not on filedocumented in this encounter
--- OUTSIDE RECORDS SUMMARY | 2025-02-05 01:58 | XMS_ITS | Clinical Summary ---
Author Organization [facility] Address [address] [place] [id number] Care Team Providers Care Disaster Response Director Name Role Phone Madi Card MD Primary [...] COVID-19 Vaccine ( - 2023-2 5 season) 2025 Meningococcal B Vaccine Aged Out No l onger eligible based on patient's age to complete this topic Meningococcal Vaccine Aged Out No archana dacia eligible based on patient's age to complete this topic RSV Immunizations Under 20 Months Aged Out No longer eligible based on patient's age to complete this topic Care Teams Disaster Response Director Relationship Specialty Start Date End Date Madi Card MD PCP - General 10/03/14
--- NOTE | 2025-02-05 07:19 | WPDANESEPPF ---
Anes - Initial Pre Proc Eval Procedure: Operation Date: 02/05/25 09:00 Proposed Procedures p Screening Colonoscopy - Rangel Powell MD Date/Time: 02/05/25 07:19 Surgeon: Rangel Powell MD Pre Op Diagnosis: Personal history of colon polyps, unspecified Patient Data Age: 79 Gender: M Height: 1.8 m Weight: 98 kg Allergies Allergy/AdvReac Type Severity Reaction Status Date / Time No Known Allergies Allergy Verified 02/05/25 07:38 Home Medications ?Medication ?Instructions ?Recorded ?Confirmed ?Type amlodipine 2.5 mg tablet 2.5 mg PO DAILY 05/05/20 02/05/25 History aspirin 81 mg tablet,delayed 81 mg PO DAILY 05/05/20 02/05/25 History release atorvastatin 80 mg tablet 80 mg PO DAILY 05/05/20 02/05/25 History ezetimibe 10 mg tablet 10 mg PO DAILY 05/05/20 02/05/25 History furosemide 40 mg tablet 40 mg PO QAM 05/05/20 02/05/25 History isosorbide dinitrate 30 mg tablet 30 mg PO DAILY 05/05/20 02/05/25 History metoprolol succinate 25 mg 25 mg PO DAILY 05/05/20 02/05/25 History tablet,extended release 24 hr omeprazole 20 mg capsule,delayed 20 mg PO DAILY 05/05/20 02/05/25 History release potassium chloride 20 mEq 10 meq PO DAILY 05/05/20 02/05/25 History tablet,extended release(part/cryst) (Klor-Con M) folic acid 800 mcg tablet 0.8 mg PO DAILY #90 tabs 07/07/20 01/22/25 Rx mecobalamin (vitamin B12) 1,000 2,000 mcg sublingual DAILY 06/01/21 02/05/25 History mcg disintegrating tablet,sublingual lisinopril 10 mg tablet 10 mg PO DAILY 01/22/25 02/05/25 History Patient hx anesthesia problems: none Family hx anesthesia problems: none Results Review: All pre-operative results and documents have been reviewed as part of the pre-operative evaluation. [facility] Past Medical History Medical History (Updated 02/05/25 @ 08:16 by Rangel Powell MD) Colon cancer screening BMI 33.0-33.9,adult Pre-diabetes Mitral valve regurgitation BMI 32.0-32.9,adult Hypersomnolence Borderline abnormal TFTs Vitamin B12 deficiency Encounter for routine adult health examination without abnormal findings BMI 31.0-31.9,adult PVC (premature ventricular contraction) Hearing loss Elevated homocysteine ASHD (arteriosclerotic heart disease) Elevated PSA BMI 30.0-30.9,adult Encounter for Medicare annual wellness exam Ventral hernia Carotid bruit Encounter for special screening examination for neoplasm of prostate BMI 29.0-29.9,adult Encounter to establish care On custodial drug therapy Hx of congestive heart failure Aortic insufficiency DJD (degenerative joint disease), multiple sites Atopic dermatitis CAD (coronary artery disease) Hyperlipidemia Benign essential hypertension GERD (gastroesophageal reflux disease) Surgical History Surgical History S/P cataract surgery H/O colonoscopy S/P CABG x 5 2013 Family History Family History Father Lung cancer Social History Social History Years smoked: 20 Smoking status: Former smoker Tobacco type: cigars Second hand tobacco smoke exposure: No Smoking end date: 06/30/80 Additional smoking assessment comments: 1 cigar in evening Alcohol intake: current Drinks per week: 14 Alcohol use details: Wine, cocktails Substance use: never Substance use type: does not use Do You Feel Safe in your Home?: Yes Lack of Transportation: No Lack of Food: Never True Current Housing: I Have Housing Concerned About Future Housing: No Difficulty Paying Gas/Electric Bills: No Difficulty Paying for Meds: No Currently Unemployed: No Difficulty w/ Childcare or Family Care: No Living arrangements: with family Gender identity (if verbalized by the patient): Male Spiritual care concerns: No Anes - Eval Final PreProcedure Day of Procedure 02/05/25 07:19 Patient weight: obese Heart: regular rate and rhythm Lungs: clear to auscultation Airway: Mallampati scale class II Neurological: alert and oriented Last oral intake: >/= 8 hours ASA classification: III Emergent: no Anesthetic plan: proceed Anesthesia type and monitoring: general GIVS and standard monitoring Results Review: All pre-operative results and documents have been reviewed as part of the pre-operative evaluation. Informed Consent: The patient's anesthetic plan and its attendant risks and benefits were discussed with the patient/family/POA. Questions were solicited and answers provided to the satisfaction of the patient/family/POA.
[2025-02-05 07:39] VITALS: BP 173/53; PULSE 66; RESP 18; TEMP 36.1; O2SAT 99; BMI 31.0
[2025-02-05] MEDS: LACTATED RINGERS 1,000 ML 150 ML IV CONT (07:54)
--- NOTE | 2025-02-05 08:15 | PM.IMHP ---
H&P: HPI History of Present Illness Date/Time: 02/05/25 08:15 Chief Complaint: History of colon polyps Narrative: The patient has a history of colonic polyps, the last colonoscopy was 5 years ago. Review of Systems Review of Systems: All systems reviewed & are unremarkable except as noted in HPI and below [facility] Past Medical History Medical History (Updated 02/05/25 @ 08:16 by Rangel Powell MD) Colon cancer screening BMI 33.0-33.9,adult Pre-diabetes Mitral valve regurgitation BMI 32.0-32.9,adult Hypersomnolence Borderline abnormal TFTs Vitamin B12 deficiency Encounter for routine adult health examination without abnormal findings BMI 31.0-31.9,adult PVC (premature ventricular contraction) Hearing loss Elevated homocysteine ASHD (arteriosclerotic heart disease) Elevated PSA BMI 30.0-30.9,adult Encounter for Medicare annual wellness exam Ventral hernia Carotid bruit Encounter for special screening examination for neoplasm of prostate BMI 29.0-29.9,adult Encounter to establish care On usp drug therapy Hx of congestive heart failure Aortic insufficiency DJD (degenerative joint disease), multiple sites Atopic dermatitis CAD (coronary artery disease) Hyperlipidemia Benign essential hypertension GERD (gastroesophageal reflux disease) Surgical History Surgical History S/P cataract surgery H/O colonoscopy S/P CABG x 5 2013 Family History Family History Father Lung cancer Social History Social History Years smoked: 20 Smoking status: Former smoker Tobacco type: cigars Second hand tobacco smoke exposure: No Smoking end date: 06/30/80 Additional smoking assessment comments: 1 cigar in evening Alcohol intake: current Drinks per week: 14 Alcohol use details: Wine, cocktails Substance use: never Substance use type: does not use Do You Feel Safe in your Home?: Yes Lack of Transportation: No Lack of Food: Never True Current Housing: I Have Housing Concerned About Future Housing: No Difficulty Paying Gas/Electric Bills: No Difficulty Paying for Meds: No Currently Unemployed: No Difficulty w/ Childcare or Family Care: No Living arrangements: with family Gender identity (if verbalized by the patient): Male Spiritual care concerns: No Meds Home Medications and Allergies Home Medications ?Medication ?Instructions ?Recorded ?Confirmed ?Type amlodipine 2.5 mg tablet 2.5 mg PO DAILY 05/05/20 02/05/25 History aspirin 81 mg tablet,delayed 81 mg PO DAILY 05/05/20 02/05/25 History release atorvastatin 80 mg tablet 80 mg PO DAILY 05/05/20 02/05/25 History ezetimibe 10 mg tablet 10 mg PO DAILY 05/05/20 02/05/25 History furosemide 40 mg tablet 40 mg PO QAM 05/05/20 02/05/25 History isosorbide dinitrate 30 mg tablet 30 mg PO DAILY 05/05/20 02/05/25 History metoprolol succinate 25 mg 25 mg PO DAILY 05/05/20 02/05/25 History tablet,extended release 24 hr omeprazole 20 mg capsule,delayed 20 mg PO DAILY 05/05/20 02/05/25 History release potassium chloride 20 mEq 10 meq PO DAILY 05/05/20 02/05/25 History tablet,extended release(part/cryst) (Klor-Con M) folic acid 800 mcg tablet 0.8 mg PO DAILY #90 tabs 07/07/20 01/22/25 Rx mecobalamin (vitamin B12) 1,000 2,000 mcg sublingual DAILY 06/01/21 02/05/25 History mcg disintegrating tablet,sublingual lisinopril 10 mg tablet 10 mg PO DAILY 01/22/25 02/05/25 History Allergies Allergy/AdvReac Type Severity Reaction Status Date / Time No Known Allergies Allergy Verified 02/05/25 07:38 Vital Signs Vital Signs - 24 hr 02/05/25 07:39 Temperature 97 F L Pulse Rate 66 Respiratory Rate 18 Blood Pressure 173/53 H Pulse Oximetry 99 Oxygen Delivery Room Air Exam Const: General: cooperative and healthy appearing Resp: Effort & Inspection: normal respiratory effort and able to speak in complete sentences Auscultation: clear to auscultation bilaterally Cardio: Rate: regular rate Rhythm: regular rhythm GI: Inspection: normal to inspection GI Palp: No No hepatosplenomegaly present Auscultation: normal bowel sounds Rectal Exam: deferred Skin: General skin exam: normal color Psych: Appearance: grossly normal Mental Status: mental status grossly normal Assessment and Plan Assessment and plan (1) History of colonic polyps: Code(s): Z86.0100 - Personal history of colon polyps, unspecified Status: Acute Assessment and Plan: The patient is deemed a good candidate for the procedure. Consent signed. Will proceed.
[2025-02-05] MEDS: SIMETHICONE ORAL SUSPENSION 20 MG/0.3 ML 30 ML BOTTLE 0.6 ML IRRIGATION (08:30)
[2025-02-05 08:42] VITALS: BP 121/47; PULSE 60; RESP 17; O2SAT 100
--- NOTE | 2025-02-05 08:43 | S_PTH ---
PATIENT: Edgardo Wiseman LOC: [facility] U#:[id number] AGE/SX: 79/M ROOM: RE02/05/[address]: Rangel Powell MD : 1945 BED: DIS: 02/05/2025 SPEC #: [id number] RECD: 02/05/25 10:17 STATUS: GARRET REQ #: [id number] MATTHEW: 02/05/25 08:[address]: Rangel Powell DEPT: [facility] Surgical RECD BY: Brit Morales ENTERED: 02/05/25 10:17 SP TYPE: Surgical OTHR DR: Jonel Peck MD Tissues: A - Colon Polypectomy Procedures: Hematoxylin and Eosin Stain Gross and Microscopic Level 4
[2025-02-05 08:52] VITALS: BP 136/62; PULSE 58; RESP 17; O2SAT 100
[2025-02-05 09:02] VITALS: BP 130/55; PULSE 55; RESP 17; O2SAT 100
== END 2025-02-05 09:14 | disposition home or self-care (01) ==
PROVIDERS: PCP Internal Medicine; Referring Provider Internal Medicine; Visit Provider Internal Medicine Gastroenterology
PROC: 0DJD8ZZ Inspection of Lower Intestinal Tract, Via Natural or Artificial Opening Endoscopic (ICD-10-PCS; CPT 45378; principal; 2025-02-05 09:00)
DX: Z12.11 Encounter for screening for malignant neoplasm of colon (principal); K63.5 Polyp of colon; K64.8 Other hemorrhoids; K57.30 Diverticulosis of large intestine without perforation or abscess without bleeding; E78.5 Hyperlipidemia, unspecified; K21.9 Gastro-esophageal reflux disease without esophagitis; R73.03 Prediabetes; E53.8 Deficiency of other specified B group vitamins; I11.0 Hypertensive heart disease with heart failure; I50.9 Heart failure, unspecified; M15.0 Primary generalized (osteo)arthritis; I34.0 Nonrheumatic mitral (valve) insufficiency; G47.00 Insomnia, unspecified; I49.3 Ventricular premature depolarization; I25.10 Atherosclerotic heart disease of native coronary artery without angina pectoris; I35.1 Nonrheumatic aortic (valve) insufficiency; L20.9 Atopic dermatitis, unspecified; F17.290 Nicotine dependence, other tobacco product, uncomplicated; E66.9 Obesity, unspecified; Z68.31 Body mass index [BMI] 31.0-31.9, adult; Z79.82 Long term (current) use of aspirin; Z79.899 Other long term (current) drug therapy; Z98.890 Other specified postprocedural states; Z95.1 Presence of aortocoronary bypass graft; Z80.1 Family history of malignant neoplasm of trachea, bronchus and lung
CPT/HCPCS: 45385; 88305; J2704; J7120